=== PATIENT | male | born 1980 ===

== ENCOUNTER 2017-07-16 07:38 | Emergency (ER) | payer OTHER ==
--- NOTE | 2017-07-16 07:41 | ER Report ---
History and Physical Time Seen By MD: 07:40 HPI/ROS CHIEF COMPLAINT: Left flank pain HISTORY OF PRESENT ILLNESS: 37-year-old who presented to the emergency department today with sudden onset of tenderness and left flank pain that waxes and wanes in intensity. There is no palliative or provoking features. No prior similar history. Patient was brought by ambulance from the [place] secondary to this pain. Patient denies any other symptoms. REVIEW OF SYSTEMS: Constitutional: No fever, no chills. Eyes: No discharge. ENT: No sore throat. Cardiovascular: No chest pain, no palpitations. Respiratory: No cough, no shortness of breath. Gastrointestinal: Sided flank pain with associated nausea and vomiting Genitourinary: No hematuria. Musculoskeletal: No back pain. Skin: No rashes. Neurological: No headache. Allergies: Coded Allergies: ibuprofen (Verified Allergy, Unknown, 07/16/17) Home Meds Discontinued Scripts Ondansetron (ZOFRAN ODT) 4 Mg Tab.rapdis, 4 MG PO Q8H Y for NAUSEA, #20 TAB 0 Refills Prov:TONY VERDE MD 07/16/17 Past Medical/Surgical History Noncontributory Constitutional Physical Exam General/Constitutional: Patient is awake, alert, nontoxic and in no acute respiratory distress. Head: Normocephalic and atraumatic. Eyes: Conjunctival clear, Pupils are equal and reactive to light. Extraocular muscles are intact and symmetrical. Sclera are clear and anicteric. Ears:External canals are clear. Tympanic membranes are clear with normal landmarks and light reflex. Nares: No rhinorrhea or bleeding. Turbinates are pink and moist. Oropharyngeal: Mucous membranes are moist. There is no pharyngeal erythema or exudate. There are no palatal petechiae. Uvula is midline and symmetrical. Neck: Supple, no adenopathy. Cardiovascular: Heart is regular rate and rhythm without audible murmurs, rubs or gallops. Pulmonary: Lungs are clear to auscultation bilaterally. There are no wheezes, rales, or rhonchi. Chest rise is symmetrical Abdomen: Soft, nontender, no guarding or peritoneal signs. Extremities: No gross deformities, No peripheral cyanosis. Able to move all 4 extremities. Neuro: Alert and oriented X3, Cranial nerves 2 thru 12 are intact and symmetrical. Patient has normal gait. Skin: No rashes, skin is warm dry and well perfused. Medical Decision Making Data Points Laboratory Hematology Test 07/16/17 07:25 Sodium Level 143 mmol/L (137-145) Potassium Level 3.0 mmol/L (3.5-5.0) Chloride Level 101 mmol/L (98-107) Carbon Dioxide Level 24 mmol/L (22-30) Blood Urea Nitrogen 14 mg/dl (9-21) Creatinine 1.20 mg/dl (0.66-1.25) Glomerular Filtration Rate Calc > 60.0 Random Glucose 106 mg/dl (75-110) Calcium Level 9.7 mg/dl (8.4-10.2) Chemistry Test 07/16/17 07:25 Glomerular Filtration Rate Calc > 60.0 Calcium Level 9.7 mg/dl (8.4-10.2) ED Course/Re-evaluation ED Course FACILITY: [facility] PATIENT NAME: Sigifredo Schulz : 1980 MR: [id number] V: [id number] EXAM DATE: [id number] ORDERING PHYSICIAN: TONY VERDE TECHNOLOGIST: Location: [facility] [place] Patient: Sigifredo Schulz : 1980 Visit/Account:[id number] Date of Sevice: 07/16/2017 ABDOMEN/PELVIS W/O CONTRAST HISTORY: Left lower quadrant abdomen pain x1 day, history of appendectomy TECHNIQUE: Axial images acquired through the abdomen/pelvis. Coronal and sagittal reformatting also performed. No IV contrast administered. COMPARISON: None. FINDINGS: Visualized lung bases: Negative. Hepatobiliary: Negative. Spleen: Accessory splenule Adrenals: Negative. Pancreas: Negative. Kidneys ureters and bladder: There is a mild left hydronephrosis and moderate left hydroureter secondary to a 4 x 2 mm calculus at the left UVJ. There is mild left periureteral stranding mild bladder wall thickening. There are several tiny nonobstructing calculi seen in the left renal collecting system as well. Mild bladder wall thickening Genitalia: Negative. GI: Negative. Vessels/spaces/nodes: Negative. Bones/soft tissues: Negative. Additional findings: None pertinent. IMPRESSION: Mild left hydronephrosis and moderate left hydroureter secondary to a 4 x 2 mm calculus at the left UVJ Several tiny nonobstructing calculi also seen in the left renal collecting system. Mild bladder wall thickening could be related to underdistention although the differential diagnosis would include a UTI Report Dictated By: Areli Silverio MD at 07/16/2017 8:42 AM Report E-Signed By: Areli Silverio MD at 07/16/2017 8:48 AM WSN:[id number] Re-evaluation 07/16/2017 11:04:38 am patient feeling improved at this time will discharge on Flomax, Percocet and Zofran. Patient will be instructed to follow-up with urology as soon as possible Decision to Disposition Date: Jul 16, 2017 Decision to Disposition Time: 11:30 Depart Departure Latest Vital Signs Impression: Primary Impression: Kidney stone Condition: Improved Disposition: HOME OR SELF-CARE Patient Instructions: Kidney Stones (ED) Additional Instructions: Schedule follow-up appointment with urology for uric kidney stone that was diagnosed today. If at any time you develop fever or your pain is not controlled with her pain medications you should go to the nearest emergency department for evaluation. You were prescribed Flomax 0.4 mg you should take one tablet by mouth at bedtime for the next 5 days You were prescribed Zofran 4 mg tablets you can take one by mouth every 8 hours as needed for nausea/vomiting You were prescribed Percocet 5 mg tablets you may take one to 2 tablets by mouth every 4-6 hours as needed for pain you were given a total of 30 tablets. TONY VERDE MD Jul 16, 2017 07:41
[2017-07-16] MEDS ORDERED: ONDANSETRON 4 MG/2 ML VIAL IVP ONE (07:55)
[2017-07-16] MEDS ORDERED: HYDROmorphone* 1 MG/ML 1 MG/ML ML IVP ONE ×2 (07:55→10:35)
--- NOTE | 2017-07-16 08:54 | RADIOLOGY IMAGING REPORT ---
FACILITY: [facility] PATIENT NAME: Sigifredo Schulz : 1980 MR: [id number] V: [id number] EXAM DATE: ORDERING PHYSICIAN: TONY VERDE TECHNOLOGIST: Location: [facility] Patient: Sigifredo Schulz : 1980 Visit/Account:[id number] Date of Sevice: 07/16/2017 ADDENDUM #1 Dose Lowering Technique One of the following dose optimization techniques was utilized in the performance of this exam: Autom ated exposure control; adjustment of the mA and/or kV according to the patient's size; or use of an i terative reconstruction technique. Specific details can be referenced in the facility's radiology C T exam operational policy. Report Dictated By: Areli Silverio MD at 07/21/2017 5:03 PM Report E-Signed By: Areli Silverio MD at 07/21/2017 5:03 PM ORIGINAL REPORT ABDOMEN/PELVIS W/O CONTRAST HISTORY: Left lower quadrant abdomen pain x1 day, history of appendectomy TECHNIQUE: Axial images acquired through the abdomen/pelvis. Coronal and sagittal reformatting also performed. No IV contrast administered. COMPARISON: None. FINDINGS: Visualized lung bases: Negative. Hepatobiliary: Negative. Spleen: Accessory splenule Adrenals: Negative. Pancreas: Negative. Kidneys ureters and bladder: There is a mild left hydronephrosis and moderate left hydroureter second richard to a 4 x 2 mm calculus at the left UVJ. There is mild left periureteral stranding mild bladder w all thickening. There are several tiny nonobstructing calculi seen in the left renal collecting syst em as well. Mild bladder wall thickening Genitalia: Negative. GI: Negative. Vessels/spaces/nodes: Negative. Bones/soft tissues: Negative. Additional findings: None pertinent. IMPRESSION: Mild left hydronephrosis and moderate left hydroureter secondary to a 4 x 2 mm calculus at the left U VJ Several tiny nonobstructing calculi also seen in the left renal collecting system. Mild bladder wall thickening could be related to underdistention although the differential diagnosis would include a UTI Report Dictated By: Areli Silverio MD at 07/16/2017 8:42 AM Report E-Signed By: Areli Silverio MD at 07/16/2017 8:48 AM WSN:[email or web address]
[2017-07-16] MEDS ORDERED: fentaNYL CITR 100 MCG/2 ML AMP IVP ONE (09:10)
[2017-07-16] MEDS ORDERED: PER PO (09:43)
[2017-07-16] MEDS ORDERED: ONDA4TAB PO (09:43)
[2017-07-16] MEDS ORDERED: KETOROLAC 15 MG/ML VIAL IVP ONE (10:35)
[2017-07-16] MEDS ORDERED: TAMSULOSIN HCL 0.4 MG CAP PO ONE (10:35)
[2017-07-16 11:00] VITALS: BP 101/63
== END 2017-07-16 11:27 | disposition home or self-care (01) ==
LOC: ER 07:44
DX: N20.0 Calculus of kidney (principal)
CPT/HCPCS: 74176; 96361; 96374; 96375; 99284; J1170; J1885; J2405; J3010; 82310; 82374; 82435; 82565; 82947; 84132; 84295; 84520

== ENCOUNTER → 2017-07-16 | Outpatient (CLI) | payer MEDICAID, OTHER ==
[~2017-07-16] MED LIST: ONDA4TAB PO; PER PO
== END ==
LOC: AMB 07:13
PROVIDERS: ATTEND Nurse Practitioner
DX: R10.32 Left lower quadrant pain (principal); R11.10 Vomiting, unspecified
CPT/HCPCS: A0425; A0427